=== PATIENT | female | born 1945 | race Caucasian/White ===

== ENCOUNTER 2016-10-12 01:56 | Emergency (ER) | payer MEDICARE, BC ==
[~2016-10-12] VITALS: Ht 152.4 cm; Wt 78.0 kg
[2016-10-12 02:14] VITALS: Ht 152.4 cm; Wt 78.0 kg
--- NOTE | 2016-10-12 03:06 | ERD ---
ER Documentation Chief Complaint Date/Time DATE: 10/12/16 TIME: 03:05 Chief Complaint Constipated x4 days HPI This very pleasant patient is here for constipation for 4 days. Denies any abdominal pain. ROS All systems reviewed and are negative except as per history of present illness. Allergies Allergies: Coded Allergies: No Known Allergy (Unverified , 10/12/16) Physical Exam Vitals Vital Signs Date Time Temp Pulse Resp B/P Pulse Ox O2 Delivery O2 Flow Rate FiO2 10/12/16 02:14 99.1 106 20 140/63 96 Physical Exam Const: [] Head: Atraumatic Eyes: Normal Conjunctiva ENT: Normal External Ears, Nose and Mouth. Neck: Full range of motion..~ No meningismus. Resp: Clear to auscultation bilaterally Cardio: Regular rate and rhythm, no murmurs Abd: Soft, non tender, non distended. Normal bowel sounds Skin: No petechiae or rashes Back: No midline or flank tenderness Ext: No cyanosis, or edema Neur: Awake and alert Psych: Normal Mood and Affect Procedures/MDM Medical decision-making: Patient with abdominal pain. Discharged home with Colace and Fleet enema. Follow with PCP. Return in 8 hours for serial abdominal exams Departure Diagnosis: Primary Impression: Constipation Constipation type: unspecified constipation type Qualified Code: K59.00 - Constipation, unspecified constipation type Condition: Stable ELISA CARMONA Oct 12, 2016 03:06
[2016-10-12] MEDS ORDERED: FLEETOIL PR (03:07)
[2016-10-12] MEDS ORDERED: DOCU-144 PO (03:07)
[2016-10-12] MEDS ORDERED: DOCUSATE SODIUM 100 MG CAP PO ONE (03:30)
[2016-10-12 03:37] VITALS: BP 117/56; PULSE 98; RESP 20; TEMP 98.4
== END 2016-10-12 03:37 | disposition home or self-care (01) ==
LOC: E/R 01:56
DX: K59.00 Constipation, unspecified (principal); I10 Essential (primary) hypertension; I50.9 Heart failure, unspecified; Z96.649 Presence of unspecified artificial hip joint
CPT/HCPCS: 99283